=== PATIENT | female | born 1995 | race Caucasian/White ===

== ENCOUNTER 2017-07-29 13:02 | Inpatient (IN) | payer OTHER ==
[~2017-07-29] VITALS: Ht 165.1 cm; Wt 136.0 kg
[2017-07-29] VITALS (11 sets, daily range): BP systolic 112–142; BP diastolic 58–82
[2017-07-29 14:26] LABS: BASOPHIL (%) 0.2 % (0-1); EOSINOPHIL (%) 0 % (0-5); HEMATOCRIT 37.3 % (36.0-46.0); HEMOGLOBIN 12.2 G/DL (11.9-15.5); IMMATURE GRANULOCYTE (%) 0.4 % (0.0-0.7); LYMPHOCYTE (%) 7.5 % (15-42); MCH 28.6 PG (29.0-34.0); MCHC 32.7 G/DL (30.0-36.0); MCV 87.6 FL (83-99); MONOCYTE (%) 1.4 % (3-12); MONOCYTE COUNT 0.2 K/uL (0-0.8); NEUTROPHIL (%) 90.5 % (45-76); PLATELET COUNT 219 K/uL (156-360); RBC DIS.WIDTH-CV 13.2 % (11.8-14.6); RBC DIS.WIDTH-SD 42.3 % (39-53); RED BLOOD COUNT 4.26 M/uL (3.80-5.20); WHITE BLOOD COUNT 13.2 K/uL (4.1-10.2)
[2017-07-29 14:51] LABS: AMPHETAMINE NEGATIVE (500 ng/mL); BARBITURATES NEGATIVE (200 ng/mL); BENZODIAZEPINES NEGATIVE (150 ng/mL); BUPRENORPHINE NEGATIVE (10 ng/mL); COCAINE NEGATIVE (150 ng/mL); METHADONE PRESUMPTIVE POSITIVE (200 ng/mL); METHAMPHETAMINE NEGATIVE (500 ng/mL); OPIATES (MORPHINE) NEGATIVE (100 ng/mL); OXYCODONE NEGATIVE (100 ng/mL); PHENCYCLIDINE NEGATIVE (25 ng/mL); PROPOXYPHENE NEGATIVE (300 ng/mL); THC CANNABINOIDS PRESUMPTIVE POSITIVE (50 ng/mL); TRICYCLIC ANTIDEPRESSANTS NEGATIVE (300 ng/mL)
[2017-07-29 15:12] LABS: GROUP B STREP NEGATIVE (NEGATIVE)
[2017-07-29] MEDS ORDERED: IBUPROFEN800 MG PO (23:36)
[2017-07-30 07:16] VITALS: BP 120/68
[2017-07-30 16:53] VITALS: BP 127/66
[2017-07-31] MEDS ORDERED: MICRONOR0.35 MG PO (11:24)
== END 2017-07-31 21:06 | disposition home or self-care (01) | DRG 775 ==
LOC: LDRP-OP 13:02 → 2WEST 13:03 → LDRP-OP 09-24 10:02
PROVIDERS: Advanced Practice Midwife
PROC: 10E0XZZ Delivery of Products of Conception, External Approach (ICD-10-PCS; principal; 2017-07-29)
PROC: 10907ZC Drainage of Amniotic Fluid, Therapeutic from Products of Conception, Via Natural or Artificial Opening (ICD-10-PCS; principal; 2017-07-29)
DX: O71.82 Other specified trauma to perineum and vulva (principal); O60.14X0 Preterm labor third trimester with preterm delivery third trimester, not applicable or unspecified; O77.0 Labor and delivery complicated by meconium in amniotic fluid; O75.89 Other specified complications of labor and delivery; O99.52 Diseases of the respiratory system complicating childbirth; J45.909 Unspecified asthma, uncomplicated; O99.324 Drug use complicating childbirth; F12.90 Cannabis use, unspecified, uncomplicated; Z87.891 Personal history of nicotine dependence; Z3A.36 36 weeks gestation of pregnancy; Z37.0 Single live birth
CPT/HCPCS: 84999; 85025; 87653; 88307; J7120